=== PATIENT | female | born 1990 | race African-American/Black ===

== ENCOUNTER 2018-08-03 22:14 | Emergency (ER) | payer MEDICAID, OTHER ==
[~2018-08-03] VITALS: Ht 167.6 cm; Wt 106.1 kg
[~2018-08-03 22:14] MED LIST: ANTIVERT25 MG ORAL; FERROUS SULFAT325 MG ORAL
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
[2018-08-03] MEDS ORDERED: IBUPROFEN600 MG ORAL (23:50)
[2018-08-03] MEDS ORDERED: HYDROCODON-ACE1 EA15 ORAL (23:50)
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
[2018-08-04] VITALS: BP 139/83
[2018-08-04] MEDS ORDERED: Norco 5mg/325mg tab ORAL ONE
[2018-08-04 00:15] VITALS: BP 139/83
--- NOTE | 2018-08-04 00:15 | NUR ---
ED Nurse Note: PT MEDICATED FOR PAIN, MEDS EFFFECTIVE, PAIN LEVEL DECREASING, PT BEING D/C TO HOME, GIVEN F/U INFO, AFTER CARE INSTRUCTIONS, AND RE-VERBALIZES PROPER MEDICATION ADMINISTRATION, PT ARMBAND REMOVED, NAD NOTED DURING D/C TO HOME.
== END 2018-08-04 00:15 | disposition home or self-care (01) ==
LOC: EMR 23:19
DX: R51 Headache (principal); S39.012A Strain of muscle, fascia and tendon of lower back, initial encounter; V43.52XA Car driver injured in collision with other type car in traffic accident, initial encounter; Y92.414 Local residential or business street as the place of occurrence of the external cause
CPT/HCPCS: 99282